=== PATIENT | female | born 1990 | race Caucasian/White ===

== ENCOUNTER → 2020-07-22 07:02 | Day surgery (SDC) | payer BC, MEDICAID, SELFPAY ==
[2020-07-22 07:40] VITALS: BP 116/59; PULSE 85; RESP 18; TEMP 36.3; O2SAT 97; BMI 29.2
[2020-07-22 08:53] VITALS: BP 116/59; PULSE 85; RESP 18; TEMP 36.3; O2SAT 97
== END ==
PROVIDERS: PCP Family Medicine; Visit Provider Family Medicine
DX: O26.893 Other specified pregnancy related conditions, third trimester (principal); Z3A.00 Weeks of gestation of pregnancy not specified; Z31.82 Encounter for Rh incompatibility status; Z67.91 Unspecified blood type, Rh negative
CPT/HCPCS: 36415; 36430; 86850; 86900; 90384; 96372

== ENCOUNTER 2020-10-01 05:04 | Inpatient (IN) | payer BC, MEDICAID, SELFPAY ==
--- NOTE | 2020-09-17 10:24 | ANES.PREANE2 ---
Pre-Anesthetic Assessment Pre-Anesthetic Assessment: Height/Weight: Height 1.6 m Preop Diagnosis: IUP Proposed Procedure: Operation Date: 10/01/20 07:00 Proposed Procedures p Section Repeat With Tubal(Not Applicable) - Amor Valle MD Familial anesthetic complications: none Social: Social History: Tobacco Exam: Pre-Anes Outpt Exam: alert, oriented x 3, clear to auscultation bilaterally and regular rate & rhythm Airway: Cervical ROM: WNL MP: 2 Dentition: Full Additional comments: permanent retainer Anesthetic Plan: ASA status: 2 Anesthesia: Regional (specify below) (spinal) Risk of > 500 ml blood loss (7ml/kg in children): No Data Anesthesia Cardiac Studies: No Data to Display
[2020-10-01] VITALS (25 sets, daily range): BP systolic 91–134; BP diastolic 42–69; PULSE 60–102; RESP 15–18; TEMP 36.3–36.7; O2SAT 96–100; BMI 28.3
[2020-10-01 05:45] LABS: Basophils % 0.3 %; Eosinophils # 0.1 10^3/uL (0.0-0.8); Eosinophils % 1.2 %; Hematocrit 35.3 % (37.0-47.0); Hemoglobin 12.1 g/dL (11.5-15.3); Lymphocytes # 2.4 10^3/uL (0.8-4.8); Lymphocytes % 26.8 %; Mean Corpuscular HGB Conc 34.3 g/dL (30.0-36.0); Mean Corpuscular Hemoglobin 32.4 pg (28.0-34.0); Mean Corpuscular Volume 94.4 fL (81-99); Mean Platelet Volume 10.5 fL (7.4-10.4); Monocytes # 0.7 10^3/uL (0.2-0.9); Monocytes % 7.4 %; Neutrophils # 5.54 10^3/uL (1.8-7.7); Neutrophils % 62.8 %; Nucleated Red Blood Cells % 0 %; Platelet Count 190 10^3/cmm (130-400); Red Blood Count 3.74 10^6/uL (4.1-5.3); White Blood Count 8.8 10^3/uL (4.0-10.0)
--- NOTE | 2020-10-01 06:50 | PM.OBGYHP ---
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 Her has been unremarkable. There were no significant findings or problems during her . Her blood type is O-. She received RhoGam on July 22. Otherwise her labs with completely within normal limits. She is Covid negative. Present Details : 4 Para: 3 Review of Systems General: Reports: 10 or more systems reviewed and unremarkable except in HPI and below Const: Reports: fatigue; Denies: fever(s) Eyes: Denies: change in vision Card: Denies: chest pain Musc: Reports: back pain Colton/Lymph: Denies: easy bruising Medications/Allergies Home Medications Medication Instructions Recorded Confirmed Last Taken Type + DHA 1 tab PO DAILY 10/01/20 10/01/20 09/30/20 History Allergies Allergy/AdvReac Type Severity Reaction Status Date / Time azithromycin Allergy Unknown Verified 10/01/20 05:40 Vitals/I&O/Wt Last Vital Signs Temp 98.1 F 10/01/20 05:21 Pulse 102 H 10/01/20 05:21 Resp 16 10/01/20 05:21 BP 111/62 10/01/20 05:21 Weight last 48 hrs Weight 160 lb Weight 160 lb Physical Exam Const: COMMON NORMALS: patient oriented x3 and alert HENMT: COMMON NORMALS: moist oral mucous membranes HEAD & SCALP: normal to inspection Chest: COMMONS NORMALS: normal inspection of the chest Resp: COMMON NORMALS: clear to auscultation bilaterally AUSCULTATION: clear to auscultation bilaterally Cardio: COMMON NORMALS: regular rate and regular rhythm RATE: regular rate RHYTHM: regular rhythm GI: INSPECTION: Yes normal to inspection and Yes other (Gravid) Extremity: COMMON NORMALS: normal to inspection GENERAL: Yes edema (Trace) Neuro: COMMON NORMALS: patient oriented x3, moves all extremities and no sensory deficits noted SENSORIUM/ORIENTATION: Yes alert Psych: COMMON NORMALS: mental status grossly normal Skin: COMMON NORMALS: no rashes or lesions noted GENERAL SKIN EXAM: no rashes or lesions noted Data : 10/01/20 05:35 A&P Assessment and plan (1) 39 weeks gestation of : We are going to proceed with a lower transverse section and a bilateral tubal ligation. I discussed the risks with the patient including the risks of bleeding, infection, and damage to intra-abdominal organs. We also discussed the risks associated with a tubal including the risk of a repeat , 8 tubal , and bleeding, infection and damage to intra-abdominal organs. She has no further questions and wishes to proceed Status: Acute (2) Previous section: Status: Acute (3) Sterilization: Status: Acute Attestations Medical Necessity Statement*: Routine and post care Coding Level of Care Code Acute Under Seal Operator for [facility] Maryellen Exam Comprehensive Diagnoses 39 weeks gestation of Z3A.39 Previous section Z98.891 Sterilization Z30.2
[2020-10-01] MEDS: famotidine 20 mg/2 mL INJ IVP (06:51)
[2020-10-01] MEDS: citric acid-sodium citrate 30 mL UDC PO (06:51)
[2020-10-01] MEDS: metoclopramide 5 mg/mL SDV 2 mL 10 MG IVP (06:53)
--- NOTE | 2020-10-01 08:19 | P.OP_ITS ---
Operative Report Date of procedure: October 01, 2020 Pre-op Diagnosis: IUP Post-op diagnosis: same Procedure Done: 1. Low transverse section 2. Intraoperative bilateral tubal ligation using a modified Keasbey technique Specimens removed/disposition: 1. Male infant with Apgars of 7 and 8 and a weight of 7 pounds 0 ounces 2. Placenta with a three-vessel cord delivered intact 3. Bilateral fallopian fluid segments with the right segment being tagged Pathology: other Pathology: Bilateral fallopian tube segments with the right segment being tagged Anesthesia: Other Estimated blood loss (mL): 600 Condition: stable Disposition: floor (OB) Brief History: Refer to history and physical Procedure: The patient was brought back to the operating room where she was prepped and draped in usual sterile fashion. Anesthesia was found to be adequate. A lower transverse skin incision was then made with a #10 blade. I then dissected down to the underlying subcutaneous tissue until arriving at the prerectal fascia. The fascia was then nicked with the scalpel bilaterally. The fascial incisions were then carried laterally with Shay scissors. Attention was then turned to the superior aspect of the incision which was grasped with kochers and tented up away from the underlying rectus abdominis muscles. The muscles were then dissected away from the fascia manually, and later with Shay scissors. Attention was then turned to the inferior aspect of the incision, and the fascia was dissected away from the underlying muscle in similar fashion. The rectus abdominis muscles were then spread manually. The peritoneum was entered manually. Excellent visualization of the uterus was noted. A lower transverse uterine incision was then made with a #10 blade. Upon arriving at the intrauterine cavity, the uterine incision was then extended manually. The was noted to be in vertex position. The baby was delivered without difficulty. After delivery of the head, the mouth and nose were suctioned at the site of the incision. There was no meconium. There was a nuchal cord x2 the remainder of the body was then delivered and placed on the abdomen. The cord was cut and clamped. The baby was then handed to the waiting nurse. The placenta was removed intact. The uterus was externalized. The intrauterine cavity was cleansed of any remaining debris. The uterine incision was reapproximated in 2 layers. The first layer was performed with 0 Vicryl in a running locked stitch. The second layer was an imbricating stitch also using 0 Vicryl. Attention was then turned to the right fallopian tube which which which was ligated cut and cauterized in a modified Keasbey technique using 0 chromic. Finally the left fallopian tube was also ligated cut and cauterized in similar fashion. The uterus was replaced into the abdomen. The peritoneum was then irrigated with warm saline. I reexamined the uterine incision and found it to be hemostatic. The rectus abdominis muscles were then reapproximated using 0 Vicryl in a running stitch. The fascia was then reapproximated using 0 Vicryl in running stitch. The skin was reapproximated using david. A sterile dressing was placed. All counts were correct x2. Both the mother and baby were in stable condition. Associated Problem List Diagnoses (1) Sterilization: (2) Previous section: (3) 39 weeks gestation of :
[2020-10-01] MEDS: ketorolac 30 mg/mL INJ IVP ×2 (10:35→17:23)
[2020-10-01] MEDS: dextrose 5%-lactated ringers 1,000 ML 125 ML IV (10:35)
[2020-10-01] MEDS: ondansetron 2 mg/ML SDV 2 mL 4 MG IVP ×2 (12:54→17:24)
[2020-10-01] MEDS: sodium chloride 0.9% 500 ML 999 ML IV (12:54)
--- NOTE | 2020-10-01 14:37 | ANE.PACU2 ---
Inpatient post-anesthesia follow up: Airway intact: Yes Vital signs: Temperature 97.8 F Pulse Rate 61 Respiratory Rate 17 Blood Pressure 99/56 Pulse Oximetry 98 Oxygen Delivery Me thod Room Air Oxygen Flow Rate Fraction of Inspir ed Oxygen Hydration adequate: Yes Nausea and vomiting: No Pain level: 2 Mental status: Baseline
[2020-10-01] MEDS: docusate sodium 100 mg Capsule PO (17:25)
[2020-10-01 20:13] LABS: Hematocrit 31.3 % (37.0-47.0); Hemoglobin 10.4 g/dL (11.5-15.3); Mean Corpuscular HGB Conc 33.2 g/dL (30.0-36.0); Mean Corpuscular Volume 96.3 fL (81-99); Mean Platelet Volume 10.3 fL (7.4-10.4); Platelet Count 159 10^3/cmm (130-400); Red Blood Count 3.25 10^6/uL (4.1-5.3)
[2020-10-02] MEDS: ibuprofen 800 mg tablet PO ×2 (01:43→09:18)
[2020-10-02 04:15] VITALS: BP 97/56; PULSE 79; RESP 17; TEMP 36.9; O2SAT 96
--- NOTE | 2020-10-02 08:27 | P.DS_ITS ---
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 The surgery was unremarkable. The patient had an unremarkable hospital stay. She had minimal bleeding. She passed flatus later on the same day. Her diet was advanced and she tolerated food well. Her pain was well controlled. There were no concerns. Information Peripartum Data: Infant Delivery Method: Physical Exam Narrative: EXAM NARRATIVE: She is in no acute distress Lungs are clear auscultation bilaterally Her heart has a regular rate and rhythm Her fundus is below the umbilicus and firm Her dressing is clean, dry and intact Her extremities have trace edema Urinary Catheter Management^: Armenta: Cath Placed During This Visit: yes, but has since been removed by the nurse Reason for Continuing Indwelling Catheter: Decision to DC Catheter Urinary Catheter Date of Insertion: 10/01/20 Urinary Catheter Time of Insertion: 07:10 Date Urinary Catheter Removed: 10/01/20 Time Urinary Catheter Discontinued: 17:50 Discharge Data Data Completed and Pending: Pending at discharge Category Date Time Status Complete Crossmat ch Routine Lab 10/01/20 05:35 Results Rho D Immune Glob ulin Routine Lab 10/01/20 05:35 Results Type and Screen R outine Lab 10/01/20 05:35 Results Pathology: Surgic al [PTH] Routine Pth 10/01/20 09:34 Ordered Labs from last 24 hours 10/01/20 10/01/20 10/01/20 20:07 20:07 19:50 WBC 10.0 Cancelled Corrected WBC Cancelled RBC 3.25 L Cancelled Hgb 10.4 L Cancelled Hct 31.3 L Cancelled MCV 96.3 Cancelled MCH 32.0 Cancelled MCHC 33.2 Cancelled RDW 13.0 Cancelled Plt Count 159 Cancelled MPV 10.3 Cancelled Blood Type Rho(D) Type Antibody Screen Screen Negative 10/01/20 05:35 WBC Corrected WBC RBC Hgb Hct MCV MCH MCHC RDW Plt Count MPV Blood Type O Negative Rho(D) Type Negative Antibody Screen Negative Screen Vitals: Last Vital Signs Temp 98.4 F 10/02/20 04:15 Pulse 79 10/02/20 04:15 Resp 17 10/02/20 04:15 BP 97/56 10/02/20 04:15 Pulse Ox 96 10/02/20 04:15 Discharge Plan Discharge Patient Disposition: Home Condition: Stable Prescriptions: New ibuprofen 800 mg Tablet 800 mg PO TID Qty: 30 RF: 0 hydrocodone-acetaminophen 5-325 mg Tablet 1 - 2 tab PO Q4H PRN (Reason: Moderate To Severe Pain) Qty: 20 RF: 0 Continued + DHA 1 tablet tablet 1 tab PO DAILY RF: 0 Discharge Orders: Discharge Order (Routine); Ordered 10/02/20 Ordered By: Amor Valle Referrals: Amor Valle MD [Primary Care Provider] - 4-7 days Discharge Diet: Regular Discharge Activity: Limit activity as instructed Discharge Attestations 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
[2020-10-02 08:46] VITALS: PULSE 72; RESP 15; O2SAT 97
[2020-10-02 09:03] VITALS: BP 101/63; PULSE 81; RESP 15; TEMP 36.8
[2020-10-02] MEDS: lanolin oint 7 gm 1 APPLIC TOPICAL (09:17)
[2020-10-02] MEDS: prenatal vitamin Capsule 1 CAP PO (09:18)
[2020-10-02] MEDS: docusate sodium 100 mg Capsule PO (09:18)
[2020-10-02] MEDS: ferrous sulfate EC 325 mg Tablet PO (09:18)
[2020-10-02] MEDS: benzocaine-menthol 78 gm Canister 1 SPRAY TOPICAL (09:18)
[2020-10-02 09:38] VITALS: BP 101/63; PULSE 81; RESP 15; TEMP 36.8
== END 2020-10-02 10:54 | disposition home or self-care (01) | DRG 784 ==
PROVIDERS: Admitting Provider Family Medicine; PCP Family Medicine; Visit Provider Family Medicine
PROC: 10D00Z1 Extraction of Products of Conception, Low, Open Approach (ICD-10-PCS; CPT 59514; principal; 2020-10-01 07:00)
DX: O34.219 Maternal care for unspecified type scar from previous cesarean delivery (principal); O36.0930 Maternal care for other rhesus isoimmunization, third trimester, not applicable or unspecified; Z3A.39 39 weeks gestation of pregnancy; Z37.0 Single live birth; O69.2XX0 Labor and delivery complicated by other cord entanglement, with compression, not applicable or unspecified; Z30.2 Encounter for sterilization
CPT/HCPCS: 12345; 36415; 51702; 58611; 59025; 59409; 85025; 85027; 85460; 86850; 86900; 88302; 90384; 99211; J0690; J1885; J2274; J2370; J2405; J2765; J3490; J7040

== ENCOUNTER → 2023-07-23 18:13 | Outpatient (BNVA) | payer BC, MEDICAID, SELFPAY | PROVIDERS: PCP Family Medicine; Visit Provider Registered Nurse Neonatal Intensive Care | DX: N39.0 Urinary tract infection, site not specified (principal); R35.0 Frequency of micturition | CPT/HCPCS: 81000 ==